=== PATIENT | male | born 1995 | race Caucasian/White ===

== ENCOUNTER 2017-04-26 01:00 | Emergency (ER) | payer OTHER ==
[~2017-04-26] VITALS: Ht 177.8 cm; Wt 69.3 kg
[2017-04-26 01:02] VITALS: TEMP 36.9; Ht 177.8 cm; Wt 69.3 kg
[2017-04-26] MEDS ORDERED: LIDO/EPINEPHRINE/SOD BICARB 20 ML VIAL INFIL ONE (01:14)
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
[2017-04-26 02:11] VITALS: BP 115/68; PULSE 66; O2SAT 96
== END 2017-04-26 02:11 | disposition home or self-care (01) ==
LOC: C.EDB 01:01 → C.EDA 02:11
DX: S01.81XA Laceration without foreign body of other part of head, initial encounter (principal); S01.01XA Laceration without foreign body of scalp, initial encounter; W25.XXXA Contact with sharp glass, initial encounter

== ENCOUNTER 2017-09-06 14:37 | Emergency (ER) | payer OTHER ==
[~2017-09-06] VITALS: Ht 177.8 cm; Wt 68.2 kg
[2017-09-06 14:42] VITALS: TEMP 36.9; Ht 177.8 cm; Wt 68.2 kg
[2017-09-06] MEDS ORDERED: PROPARACAINE HCL 0.5% OP SOLN 15 ML BTL OP STA (15:02)
--- NOTE | 2017-09-06 15:05 | EMERGENCY ROOM VISIT NOTE ---
History Report prepared by Jonathanibgisell: Parrish Bowens Under the Supervision of: Dr. Jesse Cavazos M.D. First contact with patient: 14:54 Chief Complaint: EYE ASSESSMENT Stated Complaint: LT EYE RED History of Present Illness The patient is a 22 year old male who presents to the Emergency Room with complaints of worsening redness in the left eye that began three days prior to arrival. The patient denies getting anything into the eye, or rubbing the eye excessively. He also denies any associated congestion, nausea, vomiting, diarrhea, or fevers. The patient was seen by Urgent care earlier today, who stated he needed to come to the ED to receive the proper treatment. Source of History: patient Onset: 3 days Position: eye (left) Quality: other (reddness ) Timing: worsening Review of Systems See HPI for pertinent positives and negatives. A total of 6 systems were reviewed and were otherwise negative. Past Medical & Surgical Medical Problems: (1) No active medical problems Family History Non-contributory secondary to case specifics. Social History Smoking Status: Never Smoker Marital Status: single Occupation Status: [employer] student Current/Historical Medications Scheduled Erythromycin Opth (Erythromycin Opth), 1 INCH OPL TID Prednisolone Acetate (Ophth) (Prednisolone Acetate), 1 DROPS OPL QID Allergies Coded Allergies: No Known Allergies (Unverified , 09/06/17) Physical Exam Vital Signs Date Time Temp Pulse Resp B/P (MAP) Pulse Ox O2 Delivery O2 Flow Rate FiO2 09/06/17 16:15 76 16 112/60 96 Room Air 09/06/17 14:42 36.9 81 18 124/76 98 Room Air Physical Exam GENERAL: Awake, alert, well-appearing, in no distress HENT: Normocephalic, atraumatic. Oropharynx unremarkable. EYES: Left eye with conjunctival/scleral injection. Left eye Slit lamp exam performed, see procedure note for further findings. Right eye wnl. NECK: Supple. No nuchal rigidity. FROM. No JVD. RESPIRATORY: Clear to auscultation. CARDIAC: Regular rate, normal rhythm. Extremities warm and well perfused. Pulses equal. ABDOMEN: Soft, non-distended. No tenderness to palpation. No rebound or guarding. No masses. RECTAL: Deferred. MUSCULOSKELETAL: Chest examination reveals no tenderness. The back is symmetrical on inspection without obvious abnormality. There is no CVA tenderness to palpation. No joint edema. LOWER EXTREMITIES: Calves are equal size bilaterally and non-tender. No edema. No discoloration. NEURO: Normal sensorium. No sensory or motor deficits noted. SKIN: No rash or jaundice noted. Medical Decision & Procedures Medications Administered Medications (Trade) Dose Ordered Sig/Alec Route Start Time Stop Time Status Last Admin Dose Admin Proparacaine HCl (Alcaine 0.5% Oph Soln) 1 drops NOW STAT OP 09/06/17 15:02 09/06/17 15:04 DC 09/06/17 15:15 1 DROPS Prednisolone Acetate (Pred Forte 1% Oph Susp) 2 drops NOW ONCE OPL 09/06/17 15:45 09/06/17 15:46 DC 09/06/17 15:52 2 DROPS Erythromycin (Erythromycin Oph Oint) 1 appln NOW STAT OP 09/06/17 15:40 09/06/17 15:41 DC 09/06/17 16:15 1 APPLN Procedure Slit Lamp Examination Indication:Conjunctivitis The left eye was prepped with topical proparacaine. Slit lamp examination was performed in the standard fashion. Cornea appeared clear. Anterior chamber no cells present. Scleral injection present. serous discharge present. Fluorescein examination performed and revealed normal exam. No foreign bodies noted. Negative Mally sign. The patient tolerated the procedure well without complication. Mild perilimbic flush on exam. ED Course 1456: The patient was evaluated in room B10. A complete history and physical exam was performed. 1502: Ordered Proparacaine HCl 1 droplet. 1513: I performed a Slit Lamp Exam on the left eye at this time, see Procedural Note for further findings. 1540: Ordered Erythromycin 1 application OP. 1545: Ordered Prednisolone 2 drops OP. 1600: I reevaluated the patient. Discussed results and discharge instructions: he verbalized understanding and agreement. The patient is ready for discharge. Medical Decision I reviewed the patient's past medical history, medications, and the nursing notes as described above. Differential Diagnosis conjunctivitis, corneal abrasion, ulceration, uveitis, and iritis. The patient is a 22-year-old gentleman with a report of a prior history of uveitis previously evaluated by ophthalmology with negative w/u for autoimmune disorders presents emergency Department with left eye redness, pain, photophobia for the past several days, seen at urgent care and per the patient was referred to the ED per hpi. Of note the patient has a ophthalmology appointment scheduled for Friday however comes for treatment today because he is aware from his prior episode that he shouldn't begin steroid drops as soon as possible. On arrival the patient is well-appearing, afebrile stable vital signs. On exam he has moderate scleral/conjunctival injection. On slit lamp exam the patient has no corneal abrasion or ulceration with normal fluorescene exam. However, has mild sharon-limbic flush, which given the patient's symptoms of pain with changes in lighting and his prior history of uveitis will treat for iritis/anterior uveitis with prednisolone gtts as well as with erythromycin ointment for likely provoking conjunctivitis. IOPs wnl ~11 bilaterally. Denies floaters or flashing lights. Plan for ophtho f/u as scheduled on Friday. Findings and plan for follow-up reviewed with patient. Patient agreeable and d/c 'd per discharge instructions. Impression Primary Impression: Uveitis Additional Impression: Conjunctivitis Scribe Attestation The scribe's documentation has been prepared under my direction and personally reviewed by me in its entirety. I confirm that the note above accurately reflects all work, treatment, procedures, and medical decision making performed by me. Departure Information Dispostion Home / Self-Care Prescriptions Erythromycin Opth (ERYTHROMYCIN OPTH) 12 Appln/3.5 Gm Oint 1 INCH OPL TID for 5 Days, #1 TUBE Prov: Jesse Cavazos M.D. 09/06/17 Prednisolone Acetate (Ophth) (PREDNISOLONE ACETATE) 1 % Rachelle 1 DROPS OPL QID for 5 Days, #5 ML Prov: Jesse Cavazos M.D. 09/06/17 Referrals No Doctor, Assigned (PCP) Patient Instructions ED Conjunctivitis Nonspecific, ED Iritis, ED Uveitis, My [facility] Additional Instructions Please follow up with your on Friday as scheduled for re-evaluation. You likely have an iritis/uveitis that may have been provoked by a conjunctivitis. Otherwise, your exam did not show signs of an emergent condition at this time. Acetaminophen or ibuprofen for pain and fevers as needed. Prednisolone eye drops and Erythromycin ophthalmic ointment as directed. Return to the emergency department for worsening symptoms as described in the accompanying instructions. Problem Qualifiers
[2017-09-06] MEDS ORDERED: ERYTHROMYCIN OP OINT 1 GM PKT OP STA (15:40)
[2017-09-06] MEDS ORDERED: PrednisoLONE ACET 1% OP SUSP 5 ML BTL OPL ONE (15:45)
[2017-09-06] MEDS ORDERED: ERYOPO OPL (15:45)
[2017-09-06] MEDS ORDERED: PRED1SUS17 OPL (15:45)
[2017-09-06 16:15] VITALS: BP 112/60; PULSE 76; O2SAT 96
== END 2017-09-06 16:23 | disposition home or self-care (01) ==
LOC: C.EDB 14:38
DX: H20.9 Unspecified iridocyclitis (principal); H10.9 Unspecified conjunctivitis